=== PATIENT | male | born 1960 | race Caucasian/White ===

== ENCOUNTER 2016-10-14 22:07 | Emergency (ER) | payer OTHER ==
[~2016-10-14] VITALS: Ht 182.8 cm; Wt 108.9 kg
[~2016-10-14 22:07] MED LIST: ALLOPURINOL300 MG PO; BENADRYL25 M2 PO; CIPROFLOXACIN500 MG; CLINDAMYCIN150 MG PO; INDOCIN50 MG PO; LISINOPRIL10 M1 PO; LISINOPRIL10 MG PO; OMEPRAZOLE40 MG PO; PEPCID20 MG PO; PERCOCET 325 MG1 TA2 PO; PREDNISONE20 M1 PO; VICODIN 5/500 505 MG PO
[2016-10-14 22:40] LABS: BILIRUBIN NEGATIVE (NEGATIVE); BLOOD 3+ (NEGATIVE); CLARITY SL CLOUDY (CLEAR); COLOR YELLOW (YELLOW); GLUCOSE NEGATIVE (NEGATIVE); KETONE NEGATIVE (NEGATIVE); LEUKO ESTERASE TRACE (NEGATIVE); NITRITE NEGATIVE (NEGATIVE); PROTEIN TRACE (NEGATIVE); SPECIFIC GRAVITY 1.025 (1.005-1.030); UROBILINOGEN 0.2 E.U./dl (0.2-1.0)
[2016-10-14 22:54] LABS: BASO # 0.1 10*3/uL (0.0-0.1); BASO % 1.1 % (0.0-1.0); EOS # 0.2 10*3/uL (0.0-0.4); EOS % 3.7 % (1.0-4.0); HEMATOCRIT 38.4 % (42.0-52.0); HEMOGLOBIN 12.4 g/dl (14.0-18.0); LYMPH # 1.3 10*3/uL (1.3-4.4); LYMPH % 28.5 % (27.0-41.0); MEAN CELL VOLUME 78.4 fl (80.0-94.0); MEAN CORPUSCULAR HGB 25.3 pg (27.0-31.0); MEAN CORPUSCULAR HGB CONC 32.3 g/dl (33.0-37.0); MEAN PLATELET VOLUME 9.9 fl (9.6-12.3); MONO # 0.9 10*3/uL (0.1-1.0); MONO % 18.5 % (3.0-9.0); NEUT # 2.2 10*3/uL (2.3-7.9); PLATELET COUNT AUTOMATED 210 10*3/uL (130-400); RED CELL DISTRI WIDTH 14.6 % (0-14.5); WHITE BLOOD COUNT 4.6 10*3/uL (4.8-10.8)
[2016-10-14 22:54] LABS: BACTERIA TRACE; EPITHELIAL CELLS 0-2; RBC 21-30 rbc/hpf (0-2); URINE REFLEX COMMENT YES (NO)
[2016-10-14 23:12] LABS: ALBUMIN 3.5 gm/dl (3.1-4.5); ALKALINE PHOSPHATASE 78 U/L (45-117); BILIRUBIN, TOTAL 0.5 mg/dl (0.2-1.0); BUN 13 mg/dl (7-24); CARBON DIOXIDE 25 mmol/L (21-32); CHLORIDE 108 mmol/L (98-107); EST GLOM FILT AFRICAN AMERICAN > 60 ml/min; GLUCOSE 94 mg/dL (65-99); POTASSIUM 3.4 mmol/L (3.5-5.1); SGOT/AST 16 IU/L (3-35); SGPT/ALT 20 U/L (12-78); SODIUM 146 mmol/L (136-145); TOTAL PROTEIN 7.3 gm/dL (6.4-8.2)
== END 2016-10-14 23:31 | disposition home or self-care (01) ==
LOC: ED 22:07
PROVIDERS: Emergency Medicine; Physician Assistant
DX: R53.83 Other fatigue (principal); R03.0 Elevated blood-pressure reading, without diagnosis of hypertension; Z79.899 Other long term (current) drug therapy

== ENCOUNTER 2018-07-04 08:15 | Emergency (ER) | payer OTHER ==
[~2018-07-04] VITALS: Ht 182 cm; Wt 106.1 kg
--- NOTE | ~2018-07-04 | EKG ---
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
[2018-07-04 08:46] LABS: BASO % 0.9 % (0.0-1.0); EOS # 0.2 10*3/uL (0.0-0.4); EOS % 3.6 % (1.0-4.0); HEMATOCRIT 44.3 % (42.0-52.0); HEMOGLOBIN 14.5 g/dl (14.0-18.0); LYMPH # 0.7 10*3/uL (1.3-4.4); LYMPH % 16.6 % (27.0-41.0); MEAN CELL VOLUME 82.3 fl (80.0-94.0); MEAN CORPUSCULAR HGB CONC 32.7 g/dl (33.0-37.0); MEAN PLATELET VOLUME 10.2 fl (9.6-12.3); MONO # 0.7 10*3/uL (0.1-1.0); NEUT # 2.8 10*3/uL (2.3-7.9); NEUT % 62.5 % (47.0-73.0); PLATELET COUNT AUTOMATED 219 10*3/uL (130-400); RED BLOOD COUNT 5.38 10*6/uL (4.50-5.90); RED CELL DISTRI WIDTH 13.2 % (0-14.5); WHITE BLOOD COUNT 4.5 10*3/uL (4.8-10.8)
[2018-07-04 08:54] LABS: ACT PARTIAL THROMBO TIME 22.1 SECONDS (20.8-31.5)
[2018-07-04 09:09] LABS: ALBUMIN 3.6 gm/dl (3.1-4.5); ALKALINE PHOSPHATASE 72 U/L (45-117); BUN 14 mg/dl (7-24); CHLORIDE 107 mmol/L (98-107); CREATININE 1.18 mg/dL (0.70-1.30); POTASSIUM 3.2 mmol/L (3.5-5.1); SGOT/AST 18 IU/L (3-35); SGPT/ALT 22 U/L (12-78); SODIUM 141 mmol/L (136-145); TOTAL PROTEIN 7.6 gm/dL (6.4-8.2)
[2018-07-04 09:11] LABS: TROPONIN I < 0.015 ng/ml (<0.045)
[2018-07-04 09:44] LABS: BILIRUBIN NEGATIVE (NEGATIVE); BLOOD 2+ (NEGATIVE); CLARITY SL CLOUDY (CLEAR); COLOR YELLOW (YELLOW); GLUCOSE NEGATIVE (NEGATIVE); KETONE NEGATIVE (NEGATIVE); LEUKO ESTERASE NEGATIVE (NEGATIVE); NITRITE NEGATIVE (NEGATIVE); UROBILINOGEN 0.2 E.U./dl (0.2-1.0)
[2018-07-04 09:53] LABS: RBC 16-20 rbc/hpf (0-2)
[2018-07-04 09:54] LABS: BACTERIA TRACE
[2018-07-04] MEDS ORDERED: ZOFRAN4 MG PO (09:54)
[2018-07-04] MEDS ORDERED: TAMIFLU 75MG CA75 MG PO (09:54)
[2018-07-04 09:56] LABS: EPITHELIAL CELLS 0-2
== END 2018-07-04 10:10 | disposition home or self-care (01) ==
LOC: ED 08:15
PROVIDERS: Emergency Medicine
DX: J10.1 Influenza due to other identified influenza virus with other respiratory manifestations (principal)

== ENCOUNTER 2021-09-07 12:48 | Emergency (ER) | payer OTHER ==
[~2021-09-07] VITALS: Ht 180.3 cm; Wt 115.7 kg
[~2021-09-07 12:48] MED LIST changes: +TAMIFLU 75MG CA75 MG PO; +ZOFRAN4 MG PO
[2021-09-07] MEDS ORDERED: DILTIAZEM HCL120 M2 PO (13:28)
[2021-09-07] MEDS ORDERED: HYDROCHLOROTH12.5 M2 PO (13:28)
[2021-09-07] MEDS ORDERED: METOPROLOL TART50 M1 PO (13:28)
[2021-09-07] MEDS ORDERED: ELIQUIS5 M1 PO (13:29)
[2021-09-07] MEDS ORDERED: PREDNISONE10 MG PO (13:52)
== END 2021-09-07 14:11 | disposition home or self-care (01) ==
LOC: ED 12:48
DX: M76.52 Patellar tendinitis, left knee (principal); Z79.899 Other long term (current) drug therapy

== ENCOUNTER 2021-12-25 21:57 | Emergency (ER) | payer OTHER ==
[~2021-12-25] VITALS: Wt 106.6 kg
[~2021-12-25 21:57] MED LIST changes: +DILTIAZEM HCL120 M2 PO; +ELIQUIS5 M1 PO; +HYDROCHLOROTH12.5 M2 PO; +METOPROLOL TART50 M1 PO; +PREDNISONE10 MG PO
[2021-12-25] MEDS ORDERED: PREDNISONE20 M1 PO (23:49)
== END 2021-12-26 00:19 | disposition home or self-care (01) ==
LOC: ED 21:57
DX: M79.672 Pain in left foot (principal); M79.89 Other specified soft tissue disorders; Z79.899 Other long term (current) drug therapy

== ENCOUNTER 2022-12-29 10:11 | Emergency (ER) | payer OTHER ==
[~2022-12-29] VITALS: Ht 182.8 cm; Wt 113.4 kg
[2022-12-29 11:26] LABS: BASO # 0.1 10*3/uL (0.0-0.1); BASO % 0.9 % (0.0-1.0); EOS # 0.3 10*3/uL (0.0-0.4); EOS % 4.7 % (1.0-4.0); HEMATOCRIT 46.1 % (42.0-52.0); LYMPH # 1.8 10*3/uL (1.3-4.4); LYMPH % 24.8 % (27.0-41.0); MEAN CELL VOLUME 83.7 fl (80.0-94.0); MEAN CORPUSCULAR HGB 26.7 pg (27.0-31.0); MEAN CORPUSCULAR HGB CONC 31.9 g/dl (33.0-37.0); MEAN PLATELET VOLUME 11.3 fl (9.6-12.3); MONO % 14.8 % (3.0-9.0); NEUT # 3.9 10*3/uL (2.3-7.9); NEUT % 54.5 % (47.0-73.0); PLATELET COUNT AUTOMATED 213 10*3/uL (130-400); RED BLOOD COUNT 5.51 10*6/uL (4.50-5.90); RED CELL DISTRI WIDTH 14.5 % (0-14.5); WHITE BLOOD COUNT 7.1 10*3/uL (4.8-10.8)
[2022-12-29 11:49] LABS: ALKALINE PHOSPHATASE 67 U/L (46-116); BUN 14 mg/dl (9-23); CHLORIDE 108 mmol/L (98-107); POTASSIUM 3.5 mmol/L (3.4-5.1); SGPT/ALT 17 U/L (10-49); TOTAL PROTEIN 6.5 gm/dL (6.0-8.0); URIC ACID 9.1 mg/dL (3.7-9.2)
[2022-12-29] MEDS ORDERED: HYDROCODONE-AC1 EAC1 PO (12:22)
[2022-12-29] MEDS ORDERED: PREDNISONE50 MG PO (12:22)
== END 2022-12-29 12:42 | disposition home or self-care (01) ==
LOC: ED 10:11
PROVIDERS: Emergency Medicine
DX: S86.912A Strain of unspecified muscle(s) and tendon(s) at lower leg level, left leg, initial encounter (principal); I10 Essential (primary) hypertension; Z87.442 Personal history of urinary calculi; M10.9 Gout, unspecified; Z98.890 Other specified postprocedural states; X58.XXXA Exposure to other specified factors, initial encounter; Y93.89 Activity, other specified; Y92.89 Other specified places as the place of occurrence of the external cause; Y99.8 Other external cause status

== ENCOUNTER 2024-06-04 10:08 | Emergency (ER) | payer OTHER ==
[~2024-06-04] VITALS: Ht 182.8 cm; Wt 108.9 kg
[~2024-06-04 10:08] MED LIST changes: +HYDROCODONE-AC1 EAC1 PO; +PREDNISONE50 MG PO
[2024-06-04] MEDS ORDERED: Acetaminophen/Oxycodone 5 MG/325 MG TABLET PO ONE (10:40)
[2024-06-04] MEDS ORDERED: TRAMADOL HCL50 MG PO ×2 (13:11→13:30)
== END 2024-06-04 13:40 | disposition home or self-care (01) ==
LOC: ED 10:08
DX: M25.562 Pain in left knee (principal); I10 Essential (primary) hypertension; M79.89 Other specified soft tissue disorders; M10.9 Gout, unspecified; Z87.442 Personal history of urinary calculi; Z98.890 Other specified postprocedural states

== ENCOUNTER → 2024-06-06 | Outpatient (CLI) | payer OTHER ==
[~2024-06-06] MED LIST changes: +OXYCODONE-ACET1 EAC3 PO; +TRAMADOL HCL50 MG PO
[2024-06-06 17:01] LABS: HEMATOCRIT 47.4 % (42.0-52.0); MEAN CELL VOLUME 82.6 fl (80.0-94.0); MEAN CORPUSCULAR HGB 27.2 pg (27.0-31.0); MEAN CORPUSCULAR HGB CONC 32.9 g/dl (33.0-37.0); MEAN PLATELET VOLUME 10.1 fl (9.6-12.3); PLATELET COUNT AUTOMATED 286 10*3/uL (130-400); RED BLOOD COUNT 5.74 10*6/uL (4.50-5.90); RED CELL DISTRI WIDTH 13.8 % (0-14.5); WHITE BLOOD COUNT 13.3 10*3/uL (4.8-10.8)
[2024-06-06 17:02] LABS: MANUAL DIFF REFLEX YES
[2024-06-06 18:01] LABS: POTASSIUM 3.4 mmol/L (3.4-5.1); TOTAL PROTEIN 8.4 gm/dL (6.0-8.0); URIC ACID 12.8 mg/dL (3.7-9.2)
[2024-06-06 19:40] LABS: BF MONOCYTES 3 %; BF NEUTROPHILS 97 %
[2024-06-06 19:52] LABS: ATYPICAL LYMPHS 1 % (0-0); BASOPHILS 1 % (0-1); PLATELET SUFFICIENCY NORMAL (NORMAL); TOTAL CELLS COUNTED 100 #CELLS
[2024-06-07 11:07] LABS: ACID FAST SPEC PROCESSING Direct Inoculation (.)
== END | disposition home or self-care (01) ==
LOC: LAB 16:14
PROVIDERS: ATTEND Orthopaedic Surgery
DX: R53.83 Other fatigue (principal)

== ENCOUNTER 2024-06-08 15:30 | Inpatient (IN) | payer OTHER ==
[~2024-06-08] VITALS: Ht 182.8 cm; Wt 112.2 kg
[~2024-06-08 15:30] MED LIST changes: -OXYCODONE-ACET1 EAC3 PO
[2024-06-08 15:53] VITALS: BP 134/74
[2024-06-08] MEDS ORDERED: SODIUM CHLORIDE 0.9% 1,000 ML IV ONE ×2 (16:20→17:55)
[2024-06-08 16:35] LABS: BASO % 0.1 % (0.0-1.0); MEAN CELL VOLUME 82.4 fl (80.0-94.0); MEAN CORPUSCULAR HGB 27.2 pg (27.0-31.0); MEAN PLATELET VOLUME 10.1 fl (9.6-12.3); MONO # 1.4 10*3/uL (0.1-1.0); MONO % 8.9 % (3.0-9.0); NEUT # 13.5 10*3/uL (2.3-7.9); NEUT % 85.3 % (47.0-73.0); PLATELET COUNT AUTOMATED 366 10*3/uL (130-400); RED BLOOD COUNT 5.58 10*6/uL (4.50-5.90); RED CELL DISTRI WIDTH 13.7 % (0-14.5); WHITE BLOOD COUNT 15.8 10*3/uL (4.8-10.8)
[2024-06-08 16:53] LABS: POTASSIUM 3.7 mmol/L (3.4-5.1)
[2024-06-08 18:33] LABS: BILIRUBIN Negative (Negative); BLOOD 2+ (Negative); CLARITY Clear (Clear); COLOR Yellow (Yellow); GLUCOSE Negative (Negative); KETONE Negative (Negative); LEUKO ESTERASE Negative (Negative); NITRITE Negative (Negative); PH 5.5 (4.5-8.0); SPECIFIC GRAVITY 1.015 (1.001-1.030)
[2024-06-08 18:50] LABS: BACTERIA 1+; RBC 16-20 rbc/hpf (0-2)
[2024-06-08 21:29] VITALS: BP 126/80
[2024-06-08] MEDS ORDERED: Metoprolol Tartrate 50 MG TAB PO SCH (22:00)
[2024-06-08] MEDS ORDERED: APIXABAN 5 MG TAB PO SCH (22:00)
[2024-06-08] MEDS ORDERED: OXYCODONE-ACET1 EAC3 PO (23:47)
[2024-06-08] MEDS ORDERED: Acetaminophen/Oxycodone 5 MG/325 MG TABLET PO PRN (23:50)
[2024-06-09] MEDS ORDERED: OMEPRAZOLE 20 MG CAP PO SCH (06:00)
[2024-06-09 06:25] LABS: BASO % 0.2 % (0.0-1.0); HEMATOCRIT 40.6 % (42.0-52.0); MEAN CELL VOLUME 84.2 fl (80.0-94.0); MEAN CORPUSCULAR HGB 27.2 pg (27.0-31.0); MEAN CORPUSCULAR HGB CONC 32.3 g/dl (33.0-37.0); MEAN PLATELET VOLUME 10.4 fl (9.6-12.3); MONO # 1.2 10*3/uL (0.1-1.0); MONO % 10.7 % (3.0-9.0); NEUT % 78.1 % (47.0-73.0); PLATELET COUNT AUTOMATED 337 10*3/uL (130-400); RED BLOOD COUNT 4.82 10*6/uL (4.50-5.90); RED CELL DISTRI WIDTH 13.7 % (0-14.5); WHITE BLOOD COUNT 11.5 10*3/uL (4.8-10.8)
[2024-06-09 06:38] LABS: ACT PARTIAL THROMBO TIME 30.6 SECONDS (20.0-32.1)
[2024-06-09 06:47] VITALS: BP 124/84
[2024-06-09 06:48] LABS: FREE T4 1.01 ng/dl (0.89-1.76); POTASSIUM 3.5 mmol/L (3.4-5.1); TOTAL PROTEIN 6.7 gm/dL (6.0-8.0); URIC ACID 13.7 mg/dL (3.7-9.2)
[2024-06-09] MEDS ORDERED: SODIUM CHLORIDE 0.9% 1,000 ML IV ONE (09:55)
[2024-06-09] MEDS ORDERED: predniSONE 20 MG TAB PO SCH (10:00)
[2024-06-09 10:36] VITALS: BP 126/90
[2024-06-09 19:47] VITALS: BP 146/89
[2024-06-10 01:01] VITALS: BP 179/91
[2024-06-10 06:11] LABS: BASO % 0.1 % (0.0-1.0); EOS # 0.1 10*3/uL (0.0-0.4); HEMATOCRIT 41.5 % (42.0-52.0); MEAN CELL VOLUME 82.2 fl (80.0-94.0); MEAN CORPUSCULAR HGB 27.1 pg (27.0-31.0); MEAN PLATELET VOLUME 10.4 fl (9.6-12.3); MONO % 9.9 % (3.0-9.0); NEUT # 7.8 10*3/uL (2.3-7.9); NEUT % 75.5 % (47.0-73.0); PLATELET COUNT AUTOMATED 330 10*3/uL (130-400); RED BLOOD COUNT 5.05 10*6/uL (4.50-5.90); RED CELL DISTRI WIDTH 13.9 % (0-14.5); WHITE BLOOD COUNT 10.3 10*3/uL (4.8-10.8)
[2024-06-10 06:31] LABS: CHLORIDE 105 mmol/L (98-107); POTASSIUM 3.5 mmol/L (3.4-5.1)
[2024-06-10 06:36] LABS: BUN 41 mg/dl (9-23)
[2024-06-10 09:00] VITALS: BP 140/74; BP 186/96
[2024-06-10] MEDS ORDERED: amLODIPine besylate 5 MG TAB PO SCH (10:00)
[2024-06-10 12:00] VITALS: BP 153/76
[2024-06-10] MEDS ORDERED: DOCUSATE SODIUM 100 MG CAP PO PRN (13:40)
[2024-06-10] MEDS ORDERED: methylPREDNISolone sod succ 40 MG VIAL IV SCH (14:00)
[2024-06-10 16:00] VITALS: BP 158/88
[2024-06-10 20:00] VITALS: BP 156/86
[2024-06-11] VITALS: BP 152/82
[2024-06-11 06:52] LABS: CHLORIDE 104 mmol/L (98-107); URIC ACID 8.8 mg/dL (3.7-9.2)
[2024-06-11 06:53] LABS: BASO % 0.1 % (0.0-1.0); EOS % 0.1 % (1.0-4.0); HEMATOCRIT 42.2 % (42.0-52.0); MEAN CELL VOLUME 83.7 fl (80.0-94.0); MEAN CORPUSCULAR HGB 26.8 pg (27.0-31.0); MEAN PLATELET VOLUME 10.5 fl (9.6-12.3); MONO # 0.6 10*3/uL (0.1-1.0); MONO % 5.8 % (3.0-9.0); NEUT # 9.1 10*3/uL (2.3-7.9); NEUT % 85.7 % (47.0-73.0); PLATELET COUNT AUTOMATED 343 10*3/uL (130-400); RED BLOOD COUNT 5.04 10*6/uL (4.50-5.90); RED CELL DISTRI WIDTH 13.4 % (0-14.5); WHITE BLOOD COUNT 10.7 10*3/uL (4.8-10.8)
[2024-06-11 06:56] LABS: BUN 30 mg/dl (9-23)
[2024-06-11 08:00] VITALS: BP 170/90
[2024-06-11 08:59] VITALS: BP 155/91
[2024-06-11] MEDS ORDERED: DILTIAZEM CD 120 MG CAP PO SCH (10:00)
[2024-06-11] MEDS ORDERED: ALLOPURINOL 100 MG TAB PO SCH (10:00)
[2024-06-11] MEDS ORDERED: ALLOPURINOL100 MG PO (12:09)
[2024-06-11] MEDS ORDERED: PREDNISONE50 MG PO (12:09)
[2024-06-11] MEDS ORDERED: DILTIAZEM 24HR180 MG PO (12:13)
== END 2024-06-11 13:48 | disposition home or self-care (01) | DRG 683 ==
LOC: ED 15:30 → 4E 16:34 → EDHOLD 16:34 → 4E 06-10 00:23
PROVIDERS: Emergency Medicine; Student in an Organized Health Care Education/Training Program; ADMIT Family Medicine; ATTEND Family Medicine
DX: N17.0 Acute kidney failure with tubular necrosis (principal); E44.0 Moderate protein-calorie malnutrition; M17.12 Unilateral primary osteoarthritis, left knee; M10.062 Idiopathic gout, left knee; R73.9 Hyperglycemia, unspecified; E86.0 Dehydration; I48.91 Unspecified atrial fibrillation; I10 Essential (primary) hypertension; Z82.49 Family history of ischemic heart disease and other diseases of the circulatory system; Z80.0 Family history of malignant neoplasm of digestive organs; Z68.33 Body mass index [BMI] 33.0-33.9, adult